=== PATIENT | male | born 1960 | race Caucasian/White ===

== ENCOUNTER 2017-03-10 09:03 | Emergency (ER) | payer SELFPAY ==
[2017-03-10 09:56] VITALS: BP 138/97
--- NOTE | 2017-03-10 10:49 | UC ---
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 Got up and felt ok at the time, then the next day had a lot of pain in L rib cage and stayed home from work. Went back to work yesterday and was feeling ok and worked hard, but today woke up and had a resurgence of pain in L ribs again. Denies SOB. - History Of Current Complaint Chief Complaint: UCGeneralIllness Stated Complaint: FELL-RIB AREA INJURY Time Seen by Provider: 03/10/17 10:26 Hx Obtained From: Patient Onset/Duration: Sudden Onset Onset Of Pain: Post Accident - 12 hours Severity Initially: Mild Severity Currently: Moderate Mechanism Of Injury: Fall From A Standing Position Aggravating Factor(s): Movement, Deep Breathing, Cough Alleviating factor(s): Rest Associated Signs And Symptoms: Positive: Negative - Allergies/Home Medications Allergies/Adverse Reactions: Allergies Allergy/AdvReac Type Severity Reaction Status Date / Time No Known Allergies Allergy Verified 10/24/16 14:47 PMH/Surg Hx/FS Hx/Imm Hx Endocrine History Of: Denies: Diabetes Cardiovascular History Of: Reports: Cardiac Disorders - [place], Hypertension, Myocardial Infarction Denies: Pacemaker/ICD Respiratory History Of: Denies: COPD, Asthma GI/ History Of: Denies: Renal Disease - Surgical History Surgical History: Yes Surgery Procedure, Year, and Place: 04/2016 HEART STENT-[facility]GERY[facility]G 2300G/CM-1.5 OR 3T PER [employer] - Family History Known Family History: Positive: Unknown, Cardiac Disease - [place]: Mother, father - Social History Occupation: Employed Full-time - [employer] Alcohol Use: None Alcohol Amount: PT STOPPED ALCOHOL 08/26, D/T ALCOHOL ABUSE Substance Use Type: None Smoking Status (MU): Heavy Every Day Tobacco Smoker Type: Cigarettes Amount Used/How Often: 1/2 PPD Have You Smoked in the Last Year: Yes Household Exposure Type: Cigarettes - Immunization History Most Recent Influenza Vaccination: NONE Most Recent Tetanus Shot: <10 YRS Most Recent Pneumonia Vaccination: NONE Review of Systems Constitutional: Negative Skin: Negative Eyes: Negative ENT: Negative Respiratory: Negative Cardiovascular: Negative Gastrointestinal: Negative Genitourinary: Negative Motor: Negative Neurovascular: Negative Musculoskeletal: Other: - L chest wall pain Neurological: Negative Psychological: Negative All Other Systems Reviewed And Are Negative: Yes Physical Exam Triage Information Reviewed: Yes Appearance: Well-Appearing, Well-Nourished, Pain Distress - with movement Vital Signs: Initial Vital Signs Temp 98.1 F 03/10/17 09:24 Pulse 75 03/10/17 09:24 Resp 18 03/10/17 09:24 BP 138/97 03/10/17 09:24 Pulse Ox 98 03/10/17 09:24 Vital Signs Reviewed: Yes Eye Exam: Normal Eyes: Positive: Conjunctiva Clear ENT Exam: Normal ENT: Positive: Normal ENT inspection, Hearing grossly normal, Pharynx normal, TMs normal Dental Exam: Normal Neck exam: Normal Neck: Positive: Supple, Nontender, No Lymphadenopathy Respiratory: Positive: Lungs clear, Normal breath sounds, No respiratory distress, No accessory muscle use. Negative: Chest non-tender Cardiovascular Exam: Normal Cardiovascular: Positive: RRR, No Murmur Musculoskeletal Exam: Other - localized L ribs pain, no pain with indirect stress Musculoskeletal: Positive: Strength Intact, ROM Intact Neurological Exam: Normal Neurological: Positive: Alert Psychological Exam: Normal Skin Exam: Normal Truncal Trauma Course/Dx - Differential Dx/Diagnosis Provider Diagnoses: L chest wall pain from fall Discharge - Discharge Plan Condition: Stable Disposition: HOME Prescriptions: Cyclobenzaprine TAB* [Flexeril 10 MG TAB*] 10 mg PO BEDTIME #10 tab HYDROcodone/ACETAMIN 5-325 MG* [[place] 5-325 TAB*] 1 tab PO BID #6 tab MDD 2 Naproxen Sodium [Naproxen Sodium 500 MG TAB] 500 mg PO BID #20 tab Patient Education Materials: Rib Contusion (ED) Forms: *Work Release Referrals: Carlota Aragon PA [Primary Care Provider] - 2 Weeks Additional Instructions: Return here on Monday or Monday if you do not see steady and marked improvement over the weekend.
== END 2017-03-10 10:50 | disposition home or self-care (01) ==
LOC: UCEAST 09:03
DX: R07.89 Other chest pain (principal); I21.3 ST elevation (STEMI) myocardial infarction of unspecified site; I10 Essential (primary) hypertension; Z95.1 Presence of aortocoronary bypass graft; F17.210 Nicotine dependence, cigarettes, uncomplicated
CPT/HCPCS: 99212; G0463

== ENCOUNTER 2017-06-24 14:05 | Emergency (ER) | payer BC ==
[2017-06-24 14:09] VITALS: BP 159/86
--- NOTE | 2017-06-24 14:50 | UC ---
Lower Extremity/Ankle HPI - HPI Summary HPI Summary: has a had lump on right foot near fifth metatarsal at the ball of the foot---he is concerned he has a FB and is wishing it to be removed - History of Current Complaint Chief Complaint: UCForeignBody Stated Complaint: FOOT COMPLAINT Time Seen by Provider: 06/24/17 14:38 Hx Obtained From: Patient Onset/Duration: Gradual Onset, Lasting Weeks, Still Present Severity Initially: Mild Severity Currently: Mild Aggravating Factor(s): Standing, Ambulation Alleviating Factor(s): Rest, Elevation Able to Bear Weight: Yes - Allergies/Home Medications Allergies/Adverse Reactions: Allergies Allergy/AdvReac Type Severity Reaction Status Date / Time No Known Allergies Allergy Verified 10/24/16 14:47 PMH/Surg Hx/FS Hx/Imm Hx Previously Healthy: No Endocrine History: Dyslipidemia Cardiovascular History: Cardiac Disease, Hypertension - Surgical History Surgical History: Yes Surgery Procedure, Year, and Place: 04/2016 HEART STENT-SURGERYSPG 2300G/CM-1.5 OR 3T PER [employer] - Family History Known Family History: Positive: Unknown, Cardiac Disease - [place]: Mother, father - Social History Occupation: Employed Full-time Lives: With Family Alcohol Use: None Alcohol Amount: PT STOPPED ALCOHOL 08/26, D/T ALCOHOL ABUSE Substance Use Type: None Smoking Status (MU): Heavy Every Day Tobacco Smoker Type: Cigarettes Amount Used/How Often: 1/2 PPD Have You Smoked in the Last Year: Yes Household Exposure Type: Cigarettes Cessation Counseling: Patient Advised to Stop - Immunization History Most Recent Influenza Vaccination: NONE Most Recent Tetanus Shot: <10 YRS Most Recent Pneumonia Vaccination: NONE Review of Systems Constitutional: Negative Skin: Other - ?FB on right foot laterally Eyes: Negative ENT: Negative Respiratory: Negative Cardiovascular: Negative Gastrointestinal: Negative Genitourinary: Negative Motor: Negative Neurovascular: Negative Musculoskeletal: Negative Neurological: Negative Psychological: Negative All Other Systems Reviewed And Are Negative: Yes Physical Exam Triage Information Reviewed: Yes Appearance: Well-Appearing, No Pain Distress, Well-Nourished Vital Signs: Initial Vital Signs Temp 98.4 F 06/24/17 14:06 Pulse 96 06/24/17 14:06 Resp 18 06/24/17 14:06 BP 159/86 06/24/17 14:06 Pulse Ox 98 06/24/17 14:06 Vital Signs Reviewed: Yes Eye Exam: Normal Eyes: Positive: Conjunctiva Clear ENT Exam: Normal ENT: Positive: Normal ENT inspection, Hearing grossly normal. Negative: Nasal congestion, Nasal drainage, Trismus, Muffled/hoarse voice Dental Exam: Normal Neck exam: Normal Neck: Positive: Supple, Nontender Respiratory Exam: Normal Respiratory: Positive: Chest non-tender, No respiratory distress, No accessory muscle use Cardiovascular Exam: Normal Cardiovascular: Positive: RRR, Pulses Normal, Brisk Capillary Refill Musculoskeletal Exam: Normal Musculoskeletal: Positive: Strength Intact, ROM Intact, No Edema Neurological Exam: Normal Neurological: Positive: Alert, Muscle Tone Normal Psychological Exam: Normal Skin Exam: Other Skin: Positive: Other - no evidence of FB area appears to be a plantar wart will x-ray to confirm Lower Extremity Course/Dx - Course Course Of Treatment: may try otc treatment, follow with Podiatry, nicotine cesassition information - Differential Dx/Diagnosis Differential Diagnosis/HQI/PQRI: Cellulitis, Foreign Body, Other - plantar wart Provider Diagnoses: Hypertension in poor control,nicotine dependent, plantar wart R foot Discharge - Discharge Plan Condition: Stable Disposition: HOME Patient Education Materials: Plantar Wart (ED), Hypertension (ED) Referrals: Reilly Douglas DPM [Doctor of Podiatric Medicine] - Carlota Aragon PA [Primary Care Provider] - 2 Weeks Mari Chilel DPM [Doctor of Podiatric Medicine] - Joshua Frank DPM [Doctor of Podiatric Medicine] -
--- NOTE | 2017-06-24 15:07 | RAD ---
Indication: Right foot injury evaluate for foreign body. 3 views of the right foot demonstrates no fracture. Soft tissue swelling is noted laterally. IMPRESSION: No fracture of the distal fifth metatarsal. No foreign body is identified.
== END 2017-06-24 15:28 | disposition home or self-care (01) ==
LOC: UCEAST 14:05
DX: I10 Essential (primary) hypertension (principal); B07.0 Plantar wart; E78.5 Hyperlipidemia, unspecified; I25.10 Atherosclerotic heart disease of native coronary artery without angina pectoris; Z98.61 Coronary angioplasty status; F17.210 Nicotine dependence, cigarettes, uncomplicated
CPT/HCPCS: 99211; G0463

== ENCOUNTER → 2017-08-20 13:12 | Emergency (ER) | payer BC ==
[2017-08-20 13:35] VITALS: BP 150/78
--- NOTE | 2017-09-22 11:01 | ED ---
Lower Extremity - HPI Summary HPI Summary: Pt here w/ an area of right foot pain x 3 weeks. Was seen at [facility] 06/2017 and was told he has plantar wart - XR at that time did not reveal FB - he's had fullness here since - pain just started 3 weeks ago. Has not been to PCP nor data scientist but was referred back in 06/2017. He is here today as he feels he has an infection here. Denies numbness, tingling, weakness, redness, swelling, streaking purulent drainage, fever, chills. No known injury to the area. Area is hardened and painful when he applies pressure - fine at rest, non-weight bearing. - History of Current Complaint Chief Complaint: EDExtremityLower Stated Complaint: RIGHT FOOT INJURY Time Seen by Provider: 08/20/17 14:17 Hx Obtained From: Patient Pain Intensity: 0 Pain Scale Used: 0-10 Numeric - Allergies/Home Medications Allergies/Adverse Reactions: Allergies Allergy/AdvReac Type Severity Reaction Status Date / Time No Known Allergies Allergy Verified 10/24/16 14:47 PMH/Surg Hx/FS Hx/Imm Hx Previously Healthy: Yes Endocrine/Hematology History: Denies: Hx Diabetes Cardiovascular History: Reports: Hx Angina, Hx Coronary Artery Disease, Hx Hypercholesterolemia, Hx Hypertension, Hx Myocardial Infarction Denies: Hx Pacemaker/ICD Respiratory History: Denies: Hx Asthma, Hx Chronic Obstructive Pulmonary Disease (COPD) History: Denies: Hx Renal Disease Sensory History: Denies: Hx Hearing Aid Psychiatric History: Denies: Hx Eating Disorder, Hx Panic Disorder, Hx of Violent Episodes Against Others - Surgical History Surgery Procedure, Year, and Place: 04/2016 HEART STENT-SURGERYSPG 2300G/CM-1.5 OR 3T PER [employer] Infectious Disease History: No Infectious Disease History: Denies: Traveled Outside the [place] in Last 30 Days - Family History Known Family History: Positive: Cardiac Disease - [place]: Mother, father - Social History Alcohol Use: None Alcohol Amount: PT STOPPED ALCOHOL 08/26, D/T ALCOHOL ABUSE Hx Substance Use: No Substance Use Type: Reports: None Hx Tobacco Use: Yes Smoking Status (MU): Current Every Day Smoker Type: Cigarettes Amount Used/How Often: 1/2 PPD Have You Smoked in the Last Year: Yes Review of Systems Constitutional: Negative Cardiovascular: Negative Respiratory: Negative Negative: Vomiting, Nausea Positive: no symptoms reported Musculoskeletal: Negative Negative: Arthralgia, Myalgia, Decreased ROM, Edema Skin: Other - see HPI re: skin issues Neurological: Negative Psychological: Other - frustrated with persistent pain All Other Systems Reviewed And Are Negative: Yes Physical Exam Triage Information Reviewed: Yes Vital Signs On Initial Exam: Initial Vitals Temp Pulse Resp BP Pulse Ox 98.8 F 70 14 150/78 98 08/20/17 13:29 08/20/17 13:29 08/20/17 13:29 08/20/17 13:29 08/20/17 13:29 Vital Signs Reviewed: Yes Appearance: Positive: Well-Appearing, No Pain Distress - at rest, Well-Nourished Skin: Positive: Warm, Dry - area of concern over plantar surface of Rt foot is w / callous and black speckling within - TTP - no erythema, no edema, no fluctance , no streaking, no fever to touch, no d/c, no scabbing Head/Face: Positive: Normal Head/Face Inspection ENT: Positive: Hearing grossly normal Respiratory/Lung Sounds: Positive: Breath Sounds Present Cardiovascular: Positive: Pulses are Symmetrical in both Upper and Lower Extremities Musculoskeletal: Positive: Normal, Strength/ROM Intact Neurological: Positive: Normal, Sensory/Motor Intact, Alert, Oriented to Person Place, Time Psychiatric: Positive: Normal - Sharita Coma Scale Coma Scale Total: 15 Diagnostics - Vital Signs Vital Signs Temp Pulse Resp BP Pulse Ox 08/20/17 13:29 98.8 F 70 14 150/78 98 - Laboratory Lab Statement: Any lab studies that have been ordered have been reviewed, and results considered in the medical decision making process. Lower Extremity Course/Dx - Course Course Of Treatment: Explained to pt although he has tried some home rememdies, these type of warts sometimes need medical treatment for safe and complete removal. These treatments may take multiple visits however this would be his next best step to irradicate pain. Does not appear to have an infection here. Referred to data scientist. Revieed danger s/sx of when to return to ED. Pt agrees w / plan. - Diagnoses Provider Diagnoses: Plantar wart of right foot Discharge - Discharge Plan Condition: Stable Disposition: HOME Patient Education Materials: Plantar Wart (ED) Referrals: Mari Chilel DPM [Doctor of Podiatric Medicine] - Additional Instructions: You appear to have a corn, callous possibly created by a plantar wart. This may be treated with warm soaks and foam donut dressing until seen by podiatry. Call tomorrow to schedule an appointment. *If you develop redness, swelling, streaking, purulent drainage, fever, chills, return to ED
== END | disposition home or self-care (01) ==
LOC: ED 13:12
DX: B07.0 Plantar wart (principal); M79.671 Pain in right foot
CPT/HCPCS: 99282

== ENCOUNTER 2019-05-04 09:46 | Emergency (ER) | payer BC ==
[2019-05-04] MEDS ORDERED: Ibuprofen TAB* 800 MG PO ONE (09:57)
--- NOTE | 2019-05-04 10:13 | ED ---
Lower Extremity - HPI Summary HPI Summary: Patient is a 58 year old male presenting to [facility] with right foot pain x 3 days. Pt denies any recent injuries or falls. 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 Pain is exacerbated with ambulation and palpation. Elevations improves symptoms. He has not tried any over the counter analgesics. Otherwise denies fever, insect bite, puncture wound, or erythema on foot. No past medical history. Symptoms are mild in severity. - History of Current Complaint Chief Complaint: EDExtremityLower Stated Complaint: RIGHT FOOT INJURY HEEL PER PT Time Seen by Provider: 05/04/19 09:52 Hx Obtained From: Patient Pain Intensity: 8 - Allergies/Home Medications Allergies/Adverse Reactions: Allergies Allergy/AdvReac Type Severity Reaction Status Date / Time No Known Allergies Allergy Verified 05/04/19 09:51 PMH/Surg Hx/FS Hx/Imm Hx Previously Healthy: Yes Endocrine/Hematology History: Denies: Hx Diabetes Cardiovascular History: Reports: Hx Angina, Hx Coronary Artery Disease, Hx Hypercholesterolemia, Hx Hypertension, Hx Myocardial Infarction Denies: Hx Pacemaker/ICD Respiratory History: Denies: Hx Asthma, Hx Chronic Obstructive Pulmonary Disease (COPD) History: Denies: Hx Renal Disease Sensory History: Denies: Hx Hearing Aid Psychiatric History: Denies: Hx Eating Disorder, Hx Panic Disorder, Hx of Violent Episodes Against Others - Surgical History Surgery Procedure, Year, and Place: 04/2016 HEART STENT-SURGERYSPG 2300G/CM-1.5 OR 3T PER [employer] Infectious Disease History: No Infectious Disease History: Denies: Traveled Outside the [place] in Last 30 Days - Family History Known Family History: Positive: Cardiac Disease - [place]: Mother, father, Non- Contributory - Social History Occupation: Employed Full-time Lives: With Family Alcohol Use: None Alcohol Amount: PT STOPPED ALCOHOL 08/26, D/T ALCOHOL ABUSE Hx Substance Use: No Substance Use Type: Reports: None Hx Tobacco Use: Yes Smoking Status (MU): Current Every Day Smoker Type: Cigarettes Amount Used/How Often: 1/2 PPD Have You Smoked in the Last Year: Yes Review of Systems Constitutional: Negative Negative: Fever, Chills Positive: Other - Right heel pain and edema Skin: Negative Positive: Other - No wounds, insect bites, puncture wounds, or erythema on right foot. Neurological: Negative Negative: Weakness, Paresthesia, Numbness All Other Systems Reviewed And Are Negative: Yes Physical Exam Triage Information Reviewed: Yes Vital Signs On Initial Exam: Initial Vitals Temp Pulse Resp BP Pulse Ox 98.4 F 77 16 190/126 98 05/04/19 09:48 05/04/19 09:48 05/04/19 09:48 05/04/19 09:48 05/04/19 09:48 Vital Signs Reviewed: Yes Appearance: Positive: Well-Appearing - Pt is sitting on bed in no acute distress Skin: Positive: Warm, Dry Head/Face: Positive: Normal Head/Face Inspection Eyes: Positive: Normal, EOMI Neck: Positive: Supple Musculoskeletal: Positive: Other - Mild edema overlying right heel with pain upon palpation. No erythema, puncture wounds, or breaks in the skin. Mild pain at insertion of achilles tendon, distally. Good palpable pedal pulse. No proximal pain, erythema, or edema. Neurological: Positive: Normal, CN Intact II-III Psychiatric: Positive: Affect/Mood Appropriate Diagnostics - Vital Signs Vital Signs Temp Pulse Resp BP Pulse Ox 05/04/19 09:48 98.4 F 77 16 190/126 98 - Laboratory Lab Statement: Any lab studies that have been ordered have been reviewed, and results considered in the medical decision making process. - Radiology Right Foot XR Radiology Interpretation Completed By: Radiologist Summary of Radiographic Findings: Correlate for potential plantar fasciitis. ED Provider has reviewed this report. Lower Extremity Course/Dx - Course Course Of Treatment: Patient presenting with atraumatic foot pain. No signs of infection. X-ray as noted below. Will treat patient for plantar fasciitis. Advised anti-inflammatories as directed. To ice intermittently. Patient readily with stretching education. Will follow up with podiatry for further treatment if pain persists. Patient understands and agrees with plan. Xray per radiology: Report: Negative for fracture, stress reaction, avascular necrosis, or suspicious focal. osseous lesions. Small Achilles tendon insertion and plantar fascia origin bone spurs. Accessory ossicles at the level of the sesamoid bones at the first metatarsal phalangeal. joint. Mild soft tissue swelling at the heel fat pad. IMPRESSION: #. Correlate for potential plantar fasciitis. - Diagnoses Differential Diagnosis/HQI/PQRI: Positive: Contusion, Fracture (Closed), Sprain , Strain Provider Diagnoses: Plantar cellulitis Discharge - Sign-Out/Discharge Documenting (check all that apply): Patient Departure Patient Received Moderate/Deep Sedation with Procedure: No - Discharge Plan Condition: Good Disposition: HOME Patient Education Materials: Plantar Fasciitis (ED), Plantar Fasciitis Exercises (ED) Forms: *Work Release Referrals: Reilly Douglas DPM [Doctor of Podiatric Medicine] - Carlota Aragon PA [Primary Care Provider] - Mari Chilel DPM [Doctor of Podiatric Medicine] - Additional Instructions: Schedule a follow up appointment with podiatry Take ibuprofen 600mg-800mg every 8 hours x one week Follow stretches provided on handouts Ice intermittently Return to ER if symptoms change or worsen - Billing Disposition and Condition Condition: GOOD Disposition: Home - Attestation Statements Document Initiated by Marizaibmaritza: Yes Documenting Scribe: Maulik Gould Provider For Whom Scribe is Documenting (Include Credential): MARCIA Cote Scribe Attestation: IMaulik, julianed for MARCIA Cote on 05/04/19 at 1612. Scribe Documentation Reviewed: Yes Provider Attestation: The documentation as recorded by the Maulik anthony accurately reflects the service I personally performed and the decisions made by me, MARCIA Cote Status of Scribe Document: Viewed
[2019-05-04 11:11] VITALS: BP 178/92
== END 2019-05-04 11:10 | disposition home or self-care (01) ==
LOC: ED 09:46
DX: F17.210 Nicotine dependence, cigarettes, uncomplicated (principal); L03.115 Cellulitis of right lower limb
CPT/HCPCS: 99282; A9270-GY